=== PATIENT | male | born 1985 | race African-American/Black ===

== ENCOUNTER 2018-05-20 04:45 | Emergency (ER) | payer SELFPAY ==
[~2018-05-20] VITALS: Ht 185.4 cm; Wt 108.0 kg
[2018-05-20 04:48] VITALS: BP 123/82
[2018-05-20] MEDS ORDERED: IBUPROFEN 200 MG TABLET ONE (05:11)
[2018-05-20] MEDS ORDERED: HYDROcodone/APAP 5/325 TABLET ONE (05:12)
[2018-05-20] MEDS ORDERED: IBUPROFEN 200 MG TABLET PO ONE (05:30)
[2018-05-20] MEDS ORDERED: HYDROcodone/APAP 5/325 TABLET PO ONE (05:30)
== END 2018-05-20 05:31 | disposition home or self-care (01) ==
LOC: ED 05:26
DX: K02.9 Dental caries, unspecified (principal)
CPT/HCPCS: 99283

== ENCOUNTER 2018-07-22 16:40 | Emergency (ER) | payer BC, OTHER ==
[~2018-07-22] VITALS: Ht 182.9 cm; Wt 108.8 kg
[2018-07-22 16:51] VITALS: BP 125/89
== END 2018-07-22 17:01 | disposition home or self-care (01) ==
LOC: ED 16:45
DX: K02.9 Dental caries, unspecified (principal)
CPT/HCPCS: 99283

== ENCOUNTER 2018-08-30 18:54 | Emergency (ER) | payer BC ==
[~2018-08-30] VITALS: Ht 182.9 cm; Wt 109.0 kg
[2018-08-30 19:05] VITALS: BP 126/78
[2018-08-30] MEDS ORDERED: DEXAMETHASONE 4 MG TABLET ONE (19:34)
[2018-08-30] MEDS ORDERED: DEXAMETHASONE 1 MG TABLET PO STA (19:34)
[2018-08-30 19:46] LABS: RAPID INFLUENZA A Negative (Negative); RAPID INFLUENZA B Negative (Negative)
== END 2018-08-30 20:09 | disposition home or self-care (01) ==
LOC: ED 19:28
DX: J20.8 Acute bronchitis due to other specified organisms (principal); J02.8 Acute pharyngitis due to other specified organisms; B34.9 Viral infection, unspecified
CPT/HCPCS: 71046; 87081; 87400; 87880; 99284

== ENCOUNTER 2019-10-13 13:58 | Emergency (ER) | payer BC, MEDICAID ==
[~2019-10-13] VITALS: Ht 182.9 cm; Wt 106.7 kg
--- NOTE | 2019-10-13 14:35 | NUR ---
PT TO ED FOR 5 DAYS OF IRRITATION TO RECTAL AREA AFTER BM. PT C/O BRB IN TOILET TODAY AND YESTERDAY. PT DENIES CONSTIPATION OR STRAINING WITH BM. NO HX OF SAME.
--- NOTE | 2019-10-13 15:09 | NUR ---
REPORT FROM MOISES AMARO. PT LAYING ON SIDE IN BED. RECTAL ASSESSMENT IN PROGRESS BY SIOBHAN. NAD NOTED AT THIS TIME. FRIEND AT BEDSIDE.
--- NOTE | 2019-10-13 15:42 | NUR ---
AWAITING CHART FOR DC.
[2019-10-13] MEDS ORDERED: HYDROcodone/APAP 5/325 TABLET ONE (15:57)
[2019-10-13] MEDS ORDERED: HYDROcodone/APAP 5/325 TABLET PO ONE (16:00)
[2019-10-13 16:03] VITALS: BP 138/79
== END 2019-10-13 16:05 | disposition home or self-care (01) ==
LOC: ED 16:00
DX: K64.8 Other hemorrhoids (principal); F17.210 Nicotine dependence, cigarettes, uncomplicated
CPT/HCPCS: 99284